=== PATIENT | female | born 1965 | race Caucasian/White ===

== ENCOUNTER 2016-10-19 03:33 | Emergency (ER) | payer BC, OTHER ==
[2016-10-19] MEDS: METHYLPREDNISOLONE PF 125MG/VIAL IVP ONE (04:00)
--- NOTE | 2016-10-19 04:02 | Emergency Department Record ---
History of Present Illness - General Stated Complaint: LUNGS ARE BURNING Time Seen by Provider: 10/19/16 03:50 Source: Patient Mode of Arrival: Ambulatory - History of Present Illness Initial Comments: The patient states that she developed an upper respiratory infection last Wednesday10-13-16, with clear rhinorrhea, coughing and subjective fevers. Two days ago her PCP placed her on Amoxicillin which has not helped her at all. She has an irritated throat, and tightness with her breathing. She denies cp, ap, rashes, nausea, vomiting, diarrhea, calf tenderness. She has never been a smoker , denies asthma, COPD, or history of pneumonia. She is a diabetic who takes oral and SQ insulin. MD Complaint: Cough, Rhinorrhea - Related Data Home Medications Medication Instructions Recorded Confirmed Last Taken Amoxicillin [Amoxil] 875 mg PO BID 10/19/16 10/19/16 Unknown Exenatide Microspheres [Bydureon 2 mg PO WEEKLY 10/19/16 10/19/16 Unknown Pen] Insulin Degludec [Tresiba 50 unit SC QHS 10/19/16 10/19/16 Unknown Flextouch U-100] Levothyroxine Sodium 100 mcg PO DAILY 10/19/16 10/19/16 Unknown [Levothyroxine Sodium] Lisinopril [Zestril] 10 mg PO DAILY 10/19/16 10/19/16 Unknown Metformin HCl [Metformin HCl] 1,000 mg PO BID 10/19/16 10/19/16 Unknown Sertraline HCl [Zoloft] 50 mg PO QHS 10/19/16 10/19/16 Unknown Previous Rx's Medication Instructions Recorded Albuterol Sulfate [Proventil Hfa] 1 - 2 puff INH .EVERY 4-6 HOURS 10/19/16 PRN #1 inhaler Allergies Allergy/AdvReac Type Severity Reaction Status Date / Time No Known Drug Allergies Allergy Verified 10/19/16 03:54 Review of Systems Reviewed: No additional complaints except as noted below Constitutional: Reports: As per HPI. Denies: Chills, Fever, Malaise, Night sweats, Weakness, Weight change Eyes: Reports: As per HPI. Denies: Eye discharge, Eye pain, Photophobia, Vision change ENT: Reports: As per HPI. Denies: Congestion, Dental pain, Ear pain, Epistaxis , Hearing loss, Throat pain Respiratory: Reports: As per HPI. Denies: Cough, Dyspnea, Hemoptysis, Stridor, Wheezes Cardiovascular: Reports: As per HPI. Denies: Arrhythmia, Chest pain, Dyspnea on exertion, Edema, Murmurs, Orthopnea, Palpitations, Paroxysmal nocturnal dyspnea, Rheumatic Fever, Syncope Endocrine: Reports: As per HPI. Denies: Fatigue, Heat or cold intolerance, Polydipsia, Polyuria Gastrointestinal: Reports: As per HPI. Denies: Abdominal pain, Constipation, Diarrhea, Hematemesis, Hematochezia, Melena, Nausea, Vomiting Genitourinary: Reports: As per HPI. Denies: Abnormal menses, Discharge, Dyspareunia, Dysuria, Frequency, Hematuria, Incontinence, Retention, Urgency Musculoskeletal: Reports: As per HPI. Denies: Arthralgia, Back pain, Gout, Joint swelling, Myalgia, Neck pain Skin: Reports: As per HPI. Denies: Bruising, Change in color, Change in hair/ nails, Lesions, Pruritus, Rash Neurological: Reports: As per HPI. Denies: Abnormal gait, Confusion, Headache, Numbness, Paresthesias, Seizure, Tingling, Tremors, Vertigo, Weakness Psychiatric: Reports: As per HPI. Denies: Anxiety, Auditory hallucinations, Depression, Homicidal thoughts, Suicidal thoughts, Visual hallucinations Hematological/Lymphatic: Reports: As per HPI. Denies: Anemia, Blood Clots, Easy bleeding, Easy bruising, Swollen glands Past Medical History - SOCIAL HISTORY Smoking Status: Never smoker Physical Exam - General General Appearance: Alert, Oriented x3, Cooperative, No acute distress - Head Head exam: Normal inspection - Eye Eye exam: Normal appearance, PERRL Pupils: Normal accommodation - ENT ENT exam: Normal exam, Mucous membranes moist, Normal external ear exam, Normal orophraynx, TM's normal bilaterally Ear exam: Normal external inspection. negative: External canal tenderness Nasal Exam: Normal inspection, Discharge (clear), Other (erythematous from blowing nose). negative: Sinus tenderness Mouth exam: Normal external inspection, Tongue normal Teeth exam: Normal inspection. negative: Dental caries Throat exam: Normal inspection. negative: Tonsillar erythema, Tonsillar exudate - Neck Neck exam: Normal inspection, Full ROM. negative: Tenderness - Respiratory Respiratory exam: Decreased breath sounds, Prolonged expiratory, Wheezes ( expiratory). negative: Respiratory distress - Cardiovascular Cardiovascular Exam: Regular rate, Normal rhythm, Normal heart sounds - GI/Abdominal GI/Abdominal exam: Soft, Normal bowel sounds. negative: Tenderness - Rectal Rectal exam: Deferred - exam: Deferred - Extremities Extremities exam: Normal inspection, Full ROM, Normal capillary refill. negative: Calf tenderness, Pedal edema, Tenderness - Back Back exam: Reports: Normal inspection, Full ROM. Denies: Muscle spasm, Rash noted, Tenderness - Neurological Neurological exam: Alert, CN II-XII intact, Normal gait, Oriented X3, Reflexes normal - Psychiatric Psychiatric exam: Normal affect, Normal mood - Skin Skin exam: Dry, Intact, Normal color, Warm Course Vital Signs 10/19/16 03:43 Temperature 98.3 F Pulse Rate [ 95 H Pulse Ox Probe] Respiratory 18 Rate Blood Pressure 162/85 [Left Arm] Pulse Ox 94 L - Reevaluation(s) Reevaluation #1: Patient's discomfort has decreased and she is comfortable at this time. Lungs coarse rhonchi, no wheezing currently. D Dimer is elevated and will order a CTA as she has no contrast allergies. 10/19/16 05:02 10/19/16 05:06 Reevaluation #2: CTA report discussed with patient and her . They both remember that she had the calcified lesion near the left renal upper pole, let adrenal and tail of pancreas. They will follow up with PCP to see if it is changing from the prior study. 10/19/16 06:05 Medical Decision Making - Management Options MDM Management: No Additional Work-up Planned - Data Complexity MDM Data: Labs Ordered and/or Reviewed, X-Ray Ordered and/or Reviewed (CTA chest : No PE; mild mosaid attenuation is present in the lungs, nonspecific, but can be een in vascular and small airways disease. No dense consolidation pleural effusion or pneumothorax identified. Partially calcified lesion noted near junction fo lef renal upper pole, left adrenal and tail of pancreas measuring 2.1 cm per VRad.), EKG Ordered and/or Reviewed - Lab Data Result diagrams: 10/19/16 04:33 10/19/16 04:33 - EKG Data -: EKG Interpreted by Me (NSR, likely early repolarization pattern, no prior.) Disposition Disposition: Discharge Clinical Impression: Bronchitis with bronchospasm Disposition: Home, Self-Care Condition: (1) Good Instructions: Cold Symptoms (ED), Bronchospasm (ED), Acute Bronchitis (ED) Additional Instructions: Continue present meds including amoxicillin. Rest, push fluids. Albuterol inhaler two puffs two to four times daily as needed. Follow up with PCP next week as instructed. Tylenol or ibuprofen as directed as needed for pain, fevers. Bedside vaporizer. Prescriptions: Albuterol Sulfate [Proventil Hfa] 1 - 2 puff INH .EVERY 4-6 HOURS PRN #1 inhaler PRN Reason: Difficulty In Breathing
[2016-10-19] MEDS: IPRATROPIUM/ALBUTEROL (0.5MG/3MG) NEB INH ONE (04:15)
[2016-10-19 04:31] LABS: HEMATOCRIT 35.7 % (35.0-47.0); HEMOGLOBIN 12.3 gm/dl (11.6-16.0); MEAN CORPUSCULAR HEMOGLOBIN 29.6 pg (27-33); MEAN CORPUSCULAR HGB CONC 34.5 g/dl (32-36); MEAN PLATELET VOLUME 9.4 fl (7.4-10.4); PLATELET COUNT 309 K/uL (130-400); RED BLOOD COUNT 4.15 M/uL (3.80-5.40); RED CELL DISTRIBUTION WIDTH 12.3 % (11.5-14.5); WHITE BLOOD COUNT W/O DIFF 4.2 K/uL (4.2-12.2)
[2016-10-19 04:43] LABS: ANION GAP 8.3 (7-16); BLOOD UREA NITROGEN 13 mg/dL (7-17); CARBON DIOXIDE 26.7 mmol/L (22-30); CREATININE 0.5 mg/dL (0.52-1.04); EST GLOMERULAR FILTRATION RATE > 60 ml/min; GLUCOSE,RANDOM 296 mg/dL (70-110)
[2016-10-19 04:48] LABS: INFLUENZA A NEGATIVE (NEGATIVE); INFLUENZA B NEGATIVE (NEGATIVE)
[2016-10-19 04:55] LABS: TROPONIN I < 0.012 ng/mL (0.00-0.034)
--- NOTE | 2016-10-22 14:10 | RADIOLOGY REPORT ---
EXAM: CHEST HISTORY: COUGH WITH FEVER. TECHNIQUE: Two views of the chest were obtained. Comparison: None. FINDINGS: The heart is not enlarged and there is no mediastinal mass. There are bilateral perihilar streaky changes possibly representing infiltrates. Clinical correlation and and follow-up recommended. Otherwise unremarkable chest examination with no focal area of lung consolidation. No pneumothorax. IMPRESSION: BILATERAL PERIHILAR STREAKY CHANGES POSSIBLY REPRESENTING INFILTRATES. CLINICAL CORRELATION AND FOLLOW-UP SUGGESTED. JOB NUMBER: [id number] [facility]
--- NOTE | 2016-10-22 14:33 | CT ANGIOGRAM REPORT ---
EXAM: CT ANGIOGRAPHY OF THE THORAX HISTORY: CHEST PAIN, DRY COUGH AND FEVER. TECHNIQUE: CT angiography of the thorax was performed. 85 ml of Omnipaque 350 contrast were used for this examination. Coronal and sagittal post processed MIP images were performed on an independent workstation as part of this examination. Comparison: Chest x-ray 10/19/16. FINDINGS: There are no pulmonary emboli seen. No aortic aneurysm or aortic dissection. The heart is not enlarged. There is no pleural or pericardial effusion. No mediastinal mass. No enlarged mediastinal or hilar lymph nodes identified. There are patchy areas of alveolar opacity in the lungs bilaterally. No focal area of lung consolidation. No lung mass or lung nodule seen. A small hiatal hernia is present. Calcified splenic artery aneurysm seen near the splenic hilum measuring 1.3 cm in size. There is a peripherally partially calcified structure near the upper pole of the left kidney not completely included or assessed on this examination. The upper abdomen is otherwise unremarkable. IMPRESSION: 1. NO EVIDENCE FOR PULMONARY EMBOLISM OR AORTIC DISSECTION. 2. PATCHY AREAS OF ALVEOLAR OPACITY IN A SOMEWHAT MOSAIC APPEARANCE, NONSPECIFIC, BUT CAN BE SEEN WITH VASCULAR AND SMALL AIRWAY DISEASE. CLINICAL CORRELATION AND FOLLOW-UP RECOMMENDED. NO DENSE LUNG CONSOLIDATION, PLEURAL EFFUSION OR PNEUMOTHORAX. 3. PARTIALLY CALCIFIED LESION NEAR THE UPPER POLE OF THE LEFT KIDNEY AND LEFT ADRENAL GLAND AND TAIL OF THE PANCREAS 2 CM IN SIZE INCOMPLETELY CHARACTERIZED. CT OF THE ABDOMEN MAY BE OF BENEFIT FOR FURTHER ASSESSMENT. 4. OTHER CHRONIC FINDINGS ABOVE. JOB NUMBER: [id number] [facility]
== END 2016-10-19 06:17 | disposition home or self-care (01) ==
LOC: ER 03:33
DX: J20.9 Acute bronchitis, unspecified (principal); R06.00 Dyspnea, unspecified; R07.89 Other chest pain; E11.9 Type 2 diabetes mellitus without complications; Z79.4 Long term (current) use of insulin; K86.89 Other specified diseases of pancreas
CPT/HCPCS: 99284 ×2; 96374; 84484; 80048; 87400; 85379; 85027; 83880; 71020; 71275; 94640; 93005; 93010; Q9967; J2930

== ENCOUNTER 2017-05-06 02:33 | Emergency (ER) | payer BC ==
[2017-05-06] MEDS ORDERED: AMOXICILLIN 500MG CAPSULE PO ONE (03:02)
--- NOTE | 2017-05-06 03:02 | Emergency Department Record ---
History of Present Illness - General Chief complaint: ENT Stated complaint: SORE THROAT Time Seen by Provider: 05/06/17 02:49 Source: Patient, Family Mode of Arrival: Ambulatory Limitations: No limitations - History of Present Illness Initial comments: 52 yo female presents with a sore throat that started around 10pm. The pain is sharp and hurts to swallow. No fever. She noted bilateral ear pain with "popping" as well. The left side of the face hurts as well. No swelling. Mild cough that is non productive. She has pressure in the sinuses as well that causes a headache. No nausea, vomiting, diarrhea. No rash. She took an amoxicillin and tylenol at home just prior to arrival. No back, chest or arm pain. He noted a mildly raspy voice. MD complaint: Sore throat Onset/Timin -: Hour(s) Location: R ear, L ear Severity: Moderate Severity scale (1-10): 7 Quality: Aching, Sharp Consistency: Constant Improves with: Other medication Worsens with: Movement, Position, Swallowing Context- Ear: Other Associated Symptoms: Pain with swallowing, Sore throat, Other - Related Data Home Medications Medication Instructions Recorded Confirmed Last Taken Exenatide Microspheres [Bydureon 2 mg PO WEEKLY 10/19/16 05/06/17 3 Days Ago Pen] ~05/03/17 Insulin Degludec [Tresiba 50 unit SC QHS 10/19/16 05/06/17 05/05/17 Flextouch U-100] Levothyroxine Sodium 100 mcg PO DAILY 10/19/16 05/06/17 05/05/17 [Levothyroxine Sodium] Lisinopril [Zestril] 10 mg PO DAILY 10/19/16 05/06/17 05/05/17 Metformin HCl [Metformin HCl] 1,000 mg PO BID 10/19/16 05/06/17 05/05/17 Sertraline HCl [Zoloft] 50 mg PO QHS 10/19/16 05/06/17 05/05/17 Previous Rx's Medication Instructions Recorded Albuterol Sulfate [Proventil Hfa] 1 - 2 puff INH .EVERY 4-6 HOURS 10/19/16 PRN #1 inhaler Clindamycin HCl 300 mg PO QID #28 capsule 05/06/17 Allergies Allergy/AdvReac Type Severity Reaction Status Date / Time codeine AdvReac BEHAVIORAL Verified 05/06/17 02:40 CHANGES Travel Screening - Travel/Exposure Within Last 30 Days Have you traveled within the last 30 days?: No - Travel Symptoms Symptom Screening: Headache Review of Systems Constitutional: Denies: Chills, Fever, Malaise, Weakness Eyes: Denies: Eye discharge, Eye pain, Photophobia, Vision change ENT: Reports: Congestion, Ear pain, Throat pain. Denies: Epistaxis Respiratory: Reports: Cough. Denies: Dyspnea, Hemoptysis, Stridor, Wheezes Cardiovascular: Denies: Chest pain, Palpitations, Syncope Endocrine: Denies: Fatigue Gastrointestinal: Denies: Abdominal pain, Diarrhea, Nausea, Vomiting Genitourinary: Denies: Dysuria, Urgency Musculoskeletal: Denies: Arthralgia, Back pain, Myalgia, Neck pain Skin: Denies: Bruising, Change in color, Rash Neurological: Denies: Headache, Numbness, Weakness Psychiatric: Denies: Anxiety Hematological/Lymphatic: Denies: Blood Clots, Easy bleeding, Easy bruising, Swollen glands Past Medical History - SOCIAL HISTORY Smoking Status: Never smoker Alcohol Use: None Drug Use: None - RESPIRATORY Hx Respiratory Disorders: Yes Hx Asthma: Yes (Sports) - CARDIOVASCULAR Hx Cardio Disorders: No - NEURO Hx Neuro Disorders: No - GI Hx GI Disorders: No - Hx Genitourinary Disorders: No - ENDOCRINE Hx Endocrine Disorders: Yes Hx Diabetes: Yes (DM2) Hx Thyroid Disease: Yes (hypo) - MUSCULOSKELETAL Hx Musculoskeletal Disorders: No - PSYCH Hx Psych Problems: Yes Hx Anxiety: Yes - HEMATOLOGY/ONCOLOGY Hx Hematology/Oncology Disorders: No Family Medical History Any Significant Family History?: Yes Hx Cancer: Father Hx Diabetes: Mother Physical Exam - General General Appearance: Alert, Oriented x3, Cooperative, No acute distress Limitations: No limitations - Head Head exam: Normal inspection - Eye Eye exam: Normal appearance, PERRL. negative: Conjunctival injection, Periorbital swelling - ENT ENT exam: Normal exam, Mucous membranes moist Ear exam: Normal external inspection Nasal Exam: Discharge (mild nasal mucosal edema), Sinus tenderness (frontal) Mouth exam: Normal external inspection, Tongue normal Teeth exam: Normal inspection. negative: Dental caries Throat exam: Tonsillar erythema, Tonsillomegaly. negative: Tonsillar exudate, R peritonsillar mass, L peritonsillar mass - Neck Neck exam: Normal inspection, Full ROM, Lymphadenopathy (bialteral upper anterior cervical adenopathy, soft and mobile but tender). negative: Meningismus, Tenderness, Thyromegaly - Respiratory Respiratory exam: Normal lung sounds bilaterally. negative: Respiratory distress, Rhonchi - Cardiovascular Cardiovascular Exam: Regular rate, Normal rhythm, Normal heart sounds - GI/Abdominal GI/Abdominal exam: Soft. negative: Tenderness - Rectal Rectal exam: Deferred - exam: Deferred - Extremities Extremities exam: Normal inspection - Neurological Neurological exam: Alert, CN II-XII intact, Oriented X3. negative: Altered, Motor sensory deficit - Psychiatric Psychiatric exam: Normal affect, Normal mood. negative: Agitated, Anxious - Skin Skin exam: Dry, Intact, Normal color, Warm Course Vital Signs 05/06/17 02:37 Temperature 98.1 F Pulse Rate [ 101 H Pulse Ox Probe] Respiratory 18 Rate Blood Pressure 149/80 [Right Arm] Pulse Ox 96 - Reevaluation(s) Reevaluation #1: Vitals reviewed No fever. She is well appearing. She declined the need for Tylenol or Motrin at this time 05/06/17 03:07 Reevaluation #2: Clear voice, posterior pharyngeal erythema noted, normal uvula without swelling Strep screen sent. Given clinical signs of tonsillitis with erythema and adenopathy Clindamycin given in the ED 05/06/17 03:10 05/06/17 03:14 Strep screen is negative She was treated given the clinical findings are consistent with infection 05/06/17 03:14 Disposition Disposition: Discharge Clinical Impression: Tonsillitis Disposition: Home, Self-Care Condition: (1) Good Instructions: Tonsillitis (ED) Additional Instructions: Return immediately if worse, fever, vomiting or any new symptoms or concerns Call your doctor this morning for a recheck Off work 05/06/17 Rest and stay well hydrated Prescriptions: Clindamycin HCl 300 mg PO QID #28 capsule Forms: Patient Portal Access Time of Disposition: 03:14 Quality - Quality Measures Quality Measures: N/A - Blood Pressure Screening View Details: Yes Blood Pressure Classification: Pre-Hypertensive BP Reading Systolic Measurement: 149 Diastolic Measurement: 80 Screening for High Blood Pressure: < Pre-Hypertensive BP, F/U Documented > [ G8950] Pre-Hypertensive Follow-up Interventions: Referral to alternative/primary care provider.
[2017-05-06] MEDS ORDERED: CLINDAMYCIN 150 MG CAP PO ONE (03:04)
== END 2017-05-06 03:25 | disposition home or self-care (01) ==
LOC: ER 02:33
DX: J03.90 Acute tonsillitis, unspecified (principal)
CPT/HCPCS: 87880; 99282

== ENCOUNTER 2018-05-21 19:05 | Emergency (ER) | payer BC ==
[2018-05-21] MEDS ORDERED: PREDNISONE 20 MG TAB PO ONE (19:20)
--- NOTE | 2018-05-21 19:23 | Emergency Department Record ---
History of Present Illness - General Chief complaint: Allergic Reaction Stated complaint: ALLERGIC REACTION Time Seen by Provider: 05/21/18 19:20 Source: Patient Mode of Arrival: Ambulatory Limitations: No limitations - History of Present Illness Initial Comments: 53 yo female presents to ED for evaluation of facial swelling (left) and mild, diffuse rash to the extremities that began this morning. Patient reports a history of similar symptoms related to allergic reactions. Patient denies shortness of breath, throat swelling, or wheezing symptoms. Patient reports taking Benadryl throughout the day with mild improvement, but thought she may need a steroid for a few days for her symptoms. Patient denies specific food change or new detergent, but reports that she was using her weed leola outdoors yesterday any may be reacting to the cut grass. MD Complaint: Allergic reaction Onset/Timin -: Days(s) Exposure: Unknown Symptoms: Itching, Rash, Facial swelling Severity: Mild Treatment Prior to Arrival: Benadryl - Related Data Previous Rx's Medication Instructions Recorded Albuterol Sulfate [Proventil Hfa] 1 - 2 puff INH .EVERY 4-6 HOURS 10/19/16 PRN #1 inhaler Clindamycin HCl 300 mg PO QID #28 capsule 05/06/17 Prednisone [Prednisone 20Mg] 20 mg PO TID #9 tab 05/21/18 Allergies Allergy/AdvReac Type Severity Reaction Status Date / Time codeine AdvReac BEHAVIORAL Verified 05/06/17 02:40 CHANGES Review of Systems Constitutional: Denies: Chills, Fever, Malaise, Night sweats Eyes: Denies: Eye discharge, Eye pain ENT: Reports: Other (Right sided facial swelling). Denies: Congestion, Ear pain , Epistaxis Respiratory: Denies: Cough, Dyspnea Cardiovascular: Denies: Chest pain, Dyspnea on exertion Endocrine: Denies: Fatigue, Heat or cold intolerance Gastrointestinal: Denies: Abdominal pain, Nausea, Vomiting Genitourinary: Denies: Incontinence, Retention Musculoskeletal: Denies: Arthralgia, Back pain Skin: Reports: Rash (Extremties on examination). Denies: Bruising, Change in color Neurological: Denies: Abnormal gait, Confusion, Headache, Tingling, Tremors Psychiatric: Denies: Anxiety Hematological/Lymphatic: Denies: Anemia, Blood Clots Past Medical History - SOCIAL HISTORY Smoking Status: Never smoker Drug Use: None - RESPIRATORY Hx Respiratory Disorders: Yes Hx Asthma: Yes (Sports) - CARDIOVASCULAR Hx Cardio Disorders: No - NEURO Hx Neuro Disorders: No - GI Hx GI Disorders: No - Hx Genitourinary Disorders: No - ENDOCRINE Hx Endocrine Disorders: Yes Hx Diabetes: Yes (DM2) Hx Thyroid Disease: Yes (hypo) - MUSCULOSKELETAL Hx Musculoskeletal Disorders: No - PSYCH Hx Psych Problems: Yes Hx Anxiety: Yes - HEMATOLOGY/ONCOLOGY Hx Hematology/Oncology Disorders: No Family Medical History Hx Cancer: Father Hx Diabetes: Mother Physical Exam - General General Appearance: Alert, Oriented x3, Cooperative, No acute distress Limitations: No limitations - Head Head exam: Atraumatic, Other (Mild STS to the right face without ashley-orbital involvement) Head exam detail: negative: Abrasion, Contusion, Cabrales's sign, General tenderness, Hematoma, Laceration - Eye Eye exam: Normal appearance. negative: Conjunctival injection, Periorbital swelling, Periorbital tenderness, Scleral icterus - ENT Ear exam: negative: Auricular hematoma, Auricular trauma Nasal Exam: negative: Active bleeding, Discharge, Dried blood, Foreign body Mouth exam: negative: Drooling, Laceration, Muffled voice, Tongue elevation Throat exam: Other (No uvular edema on examination). negative: Tonsillar erythema, Tonsillomegaly, R peritonsillar mass, L peritonsillar mass - Neck Neck exam: Normal inspection. negative: Meningismus, Tenderness, Thyromegaly - Respiratory Respiratory exam: Normal lung sounds bilaterally. negative: Respiratory distress, Rhonchi, Stridor, Wheezes - Cardiovascular Cardiovascular Exam: Regular rate, Normal rhythm, Normal heart sounds - GI/Abdominal GI/Abdominal exam: Soft. negative: Rebound, Rigid, Tenderness - Rectal Rectal exam: Deferred - exam: Deferred - Extremities Extremities exam: Other (Mild erythematous rash to the left forearm, left inner thigh. Rash appears c/w with mild localized reaction, no diffuse urticaria are present on examination.). negative: Calf tenderness, Pedal edema, Tenderness - Back Back exam: Denies: CVA tenderness (R), CVA tenderness (L) - Neurological Neurological exam: Alert, Normal gait, Oriented X3 - Psychiatric Psychiatric exam: Normal affect, Normal mood - Skin Skin exam: Erythema, Rash Distribution of rash: LUE, LLE Description of rash: Erythematous, Urticarial Course - Reevaluation(s) Reevaluation #1: 05/21/18 19:29 Patient's presentation appears c/w with mild generalized allergic reaction without evidence for anaphylatic reaction. Will initiate treatment with Prednisone for 3 days her in ED and Benadryl as needed. Patient is well appearing on examination in no acute distress and appears stable for discharge at this time. Disposition Disposition: Discharge Clinical Impression: Allergic reaction Qualifiers: Encounter type: initial encounter Qualified Code(s): T78.40XA - Allergy, unspecified, initial encounter Disposition: Home, Self-Care Condition: (2) Stable Instructions: General Allergic Reaction (ED) Additional Instructions: Return to ED if your symptoms worsen or if you have any concerns. Prednisone as directed. Follow-up with your family doctor in 1-3 days as directed. Prescriptions: Prednisone [Prednisone 20Mg] 20 mg PO TID #9 tab Forms: Patient Portal Access Time of Disposition: 19:22 Quality - Quality Measures Quality Measures: N/A - Blood Pressure Screening Does Patient Have Any of the Following: No Systolic Measurement: ~ Screening for High Blood Pressure: < First Hypertensive BP, F/U Documented > [ G8950] First Hypertensive Follow-up Interventions: Referral to alternative/primary care provider.
== END 2018-05-21 19:32 | disposition home or self-care (01) ==
LOC: ER 19:05
DX: T78.40XA Allergy, unspecified, initial encounter (principal); R22.0 Localized swelling, mass and lump, head; E11.9 Type 2 diabetes mellitus without complications
CPT/HCPCS: 99282; J7512

== ENCOUNTER 2019-04-04 00:53 | Emergency (ER) | payer BC ==
[2019-04-04] MEDS ORDERED: ASPIRIN 81 MG CHEWABLE TABLET PO ONE (00:56)
--- NOTE | 2019-04-04 01:07 | Emergency Department Record ---
History of Present Illness - General Chief Complaint: Chest Pain Stated Complaint: CHEST PAIN Time Seen by Provider: 04/04/19 00:55 Source: Patient Mode of Arrival: Ambulatory Limitations: No limitations - History of Present Illness Initial Comments: 54 yo female presents to ED for evaluation of intermittent chest pain symptoms for the past 2 days, worsening and more intense this evening radiating to the left shoulder. Patient denies fevers, chills, or cough symptoms. Patient reports nausea without vomiting. Patient denies pain with deep inspiration, history of DVT, or claf pain/swelling symptoms. Patient denies previous heart problems but does report history of DM/hypercholesterolemia and family history of heart disease 40's (mother). MD Complaint: Chest pain Onset/Timin -: Hour(s) Onset: During rest Pain Location: Left chest Severity scale (1-10): 6 Quality: Heaviness, Tightness Consistency: Constant Improves With: Nothing Worsens With: Nothing Anginal Symptoms: Nausea Treatments Prior to Arrival: None - Related Data On Oral Contraceptives: No Home Medications Medication Instructions Recorded Confirmed Last Taken NPH, Human Insulin N [Novolin N] 50 unit SC BID 04/04/19 04/04/19 Unknown Previous Rx's Medication Instructions Recorded Albuterol Sulfate [Proventil Hfa] 1 - 2 puff INH .EVERY 4-6 HOURS 10/19/16 PRN #1 inhaler Allergies Allergy/AdvReac Type Severity Reaction Status Date / Time codeine AdvReac BEHAVIORAL Verified 05/06/17 02:40 CHANGES Travel Screening - Travel/Exposure Within Last 30 Days Have you traveled within the last 30 days?: No Review of Systems Constitutional: Denies: Chills, Fever, Malaise, Night sweats Eyes: Denies: Eye discharge, Eye pain ENT: Denies: Congestion, Ear pain, Epistaxis Respiratory: Denies: Cough, Dyspnea Cardiovascular: Reports: Chest pain. Denies: Dyspnea on exertion, Palpitations Endocrine: Denies: Fatigue, Heat or cold intolerance Gastrointestinal: Reports: Nausea. Denies: Abdominal pain, Vomiting Genitourinary: Denies: Incontinence, Retention Musculoskeletal: Denies: Arthralgia, Back pain Skin: Denies: Bruising, Change in color Neurological: Denies: Abnormal gait, Confusion, Headache, Seizure Psychiatric: Denies: Anxiety Hematological/Lymphatic: Denies: Anemia, Blood Clots Past Medical History - SOCIAL HISTORY Smoking Status: Never smoker Alcohol Use: None Drug Use: None - RESPIRATORY Hx Respiratory Disorders: Yes Hx Asthma: Yes (Sports) - CARDIOVASCULAR Hx Cardio Disorders: No - NEURO Hx Neuro Disorders: No - GI Hx GI Disorders: No - Hx Genitourinary Disorders: No - ENDOCRINE Hx Endocrine Disorders: Yes Hx Diabetes: Yes (DM2) Hx Thyroid Disease: Yes (hypo) - MUSCULOSKELETAL Hx Musculoskeletal Disorders: No - PSYCH Hx Psych Problems: Yes Hx Anxiety: Yes - HEMATOLOGY/ONCOLOGY Hx Hematology/Oncology Disorders: No Family Medical History Any Significant Family History?: Yes Hx Cancer: Father Hx Diabetes: Mother Hx Heart Disease: Mother Physical Exam - General General Appearance: Alert, Oriented x3, Cooperative, Moderate distress Limitations: No limitations - Head Head exam: Atraumatic, Normocephalic, Normal inspection Head exam detail: negative: Abrasion, Contusion, Cabrales's sign, General tenderness, Hematoma, Laceration - Eye Eye exam: Normal appearance. negative: Conjunctival injection, Periorbital swel ling, Periorbital tenderness, Scleral icterus - ENT Ear exam: negative: Auricular hematoma, Auricular trauma Nasal Exam: negative: Active bleeding, Discharge, Dried blood, Foreign body Mouth exam: negative: Drooling, Laceration, Muffled voice, Tongue elevation - Neck Neck exam: Normal inspection. negative: Meningismus, Tenderness - Respiratory Respiratory exam: Normal lung sounds bilaterally. negative: Rales, Respiratory distress, Rhonchi, Stridor - Cardiovascular Cardiovascular Exam: Regular rate, Normal rhythm, Normal heart sounds Peripheral Pulses: 3+: Radial (R), Radial (L), Dorsalis Pedis (R), Dorsalis Pedis (L) - GI/Abdominal GI/Abdominal exam: Soft. negative: Rebound, Rigid, Tenderness - Rectal Rectal exam: Deferred - exam: Deferred - Extremities Extremities exam: Normal inspection. negative: Pedal edema, Tenderness - Back Back exam: Denies: CVA tenderness (R), CVA tenderness (L) - Neurological Neurological exam: Alert, Normal gait, Oriented X3 - Psychiatric Psychiatric exam: Normal affect, Normal mood - Skin Skin exam: Normal color. negative: Abrasion Type of lesion: negative: abrasion Course Vital Signs 04/04/19 00:56 Temperature 97.3 F L Pulse Rate 88 Respiratory 20 Rate Blood Pressure 198/98 Pulse Ox 100 - Reevaluation(s) Reevaluation #1: 04/04/19 01:06 EKG: NSR 85 Normal axis, normal intervals No acute ST-T wave changes laboratory studies were reviewed and are grossly unremarkable for an acute process. CXR: No acute process The patient was deemed to be moderate-risk for cardiac disease based on the patients history and evaluation in the ED, HEART Score was applied and found to be 5. As a result, will initiate transfer for further cardiac evaluation as cardiology is not available later today for cardiac evaluation. Reevaluation #2: 04/04/19 02:14 Case was discussed with Dr. Burciaga, will accept the patient for further cardiac evaluation. Medical Decision Making - Lab Data Result diagrams: 04/04/19 01:00 04/04/19 01:00 Disposition Disposition: Transfer Clinical Impression: IDDM (insulin dependent diabetes mellitus) Chest pain Qualifiers: Chest pain type: unspecified Qualified Code(s): R07.9 - Chest pain, unspecified HTN (hypertension) Qualifiers: Hypertension type: unspecified Qualified Code(s): I10 - Essential (primary) hypertension Disposition: Acute Care Hospital Transfer Transfer To: [facility] Reason For Transfer: Cardiac evaluation Accepting Physician: Patrica Time Discussed w/Accepting Physician: 02:15 Condition: (2) Stable Forms: Patient Portal Access Time of Disposition: 02:15 Quality - Quality Measures Quality Measures: N/A - Blood Pressure Screening Does Patient Have Any of the Following: Active Dx of HTN Blood Pressure Classification: Hypertensive Reading Systolic Measurement: 198 Diastolic Measurement: 98 Screening for High Blood Pressure: Patient Exclusion, Hx of HTN [[id number]]
[2019-04-04] MEDS ORDERED: NITROGLYCERIN 0.4MG SL TABLET #25 BTL SL ONE (01:11)
[2019-04-04 01:14] LABS: ABSOLUTE NEUTROPHIL COUNT 2.68; BASO % 0.6 % (0-6); EOS % 5.3 % (0-6); GRAN % 32.2 % (47-80); HEMATOCRIT 36.8 % (35.0-47.0); HEMOGLOBIN 12.1 gm/dl (11.6-16.0); LYMPH % 48.2 % (16-45); MEAN CORPUSCULAR HEMOGLOBIN 28.3 pg (27-33); MEAN CORPUSCULAR HGB CONC 32.9 g/dl (32-36); MEAN PLATELET VOLUME 8.9 fl (7.4-10.4); MONO % 13.7 % (0-9); PLATELET COUNT 414 K/uL (130-400); RED BLOOD COUNT 4.28 M/uL (3.80-5.40); RED CELL DISTRIBUTION WIDTH 12.9 % (11.5-14.5); WHITE BLOOD COUNT W/O DIFF 8.3 K/uL (4.2-12.2)
[2019-04-04 01:22] LABS: BLOOD UREA NITROGEN 14 mg/dL (6-20); CREATININE 0.4 mg/dL (0.5-0.9); EST GLOMERULAR FILTRATION RATE > 60 mL/min
[2019-04-04 01:23] LABS: TOTAL PROTEIN 6.9 g/dL (6.6-8.7)
[2019-04-04 01:25] LABS: GLUCOSE,RANDOM 142 mg/dL (74-109)
[2019-04-04 01:27] LABS: ALB/GLOB RATIO 1.5 (1.1-1.8); ALBUMIN 4.1 g/dL (4.0-5.0); ALT/SGPT 24 U/L (<33); AST/SGOT 21 U/L (10.0-35.0)
[2019-04-04 01:28] LABS: ALKALINE PHOSPHATASE 80 U/L (35-104)
[2019-04-04] MEDS: NITROGLYCERIN 0.4MG SL TABLET #25 BTL SL PRN ×3 (01:35→01:45)
--- NOTE | 2019-04-06 05:31 | RADIOLOGY REPORT ---
DATE: 04/04/2019. EXAM: TWO-VIEW CHEST. HISTORY: DIFFICULTY BREATHING. COMPARISON: 10/19/2016. TECHNIQUE: Two views of the chest were obtained. FINDINGS: Heart size is normal. No pulmonary vascular congestion. No infiltrate or pleural effusion. The osseus structures are normal. IMPRESSION: NO ACUTE DISEASE PROCESS. Job Number: [id number] MTDD
== END 2019-04-04 06:38 | disposition short-term general hospital (02) ==
LOC: ER 00:53
DX: R07.89 Other chest pain (principal); R11.0 Nausea; E11.9 Type 2 diabetes mellitus without complications; I10 Essential (primary) hypertension; Z79.4 Long term (current) use of insulin; Z79.84 Long term (current) use of oral hypoglycemic drugs
CPT/HCPCS: 71046; 80053; 84484; 85025; 93005; 93010; 99285